=== PATIENT | female | born 1935 | race Two or more races ===

== ENCOUNTER 2019-11-13 11:36 | Emergency (ER) | payer OTHER ==
[~2019-11-13] VITALS: Ht 157.5 cm; Wt 59.0 kg
[~2019-11-13 11:36] MED LIST: ALDACTONE25 MG; ATIVAN1 MG; METOPROLOL TAR100 MG; RISPERIDONE; TRAZODONE HCL50 MG
[2019-11-13] MEDS ORDERED: ARICEPT5 MG PO (11:58)
[2019-11-13] MEDS ORDERED: TOPROL XL100 MG PO (11:58)
[2019-11-13] MEDS ORDERED: LIPIODOL10 ML PO (11:59)
== END 2019-11-13 13:40 | disposition home or self-care (01) ==
LOC: ER 11:36
DX: B33.8 Other specified viral diseases (principal); B96.0 Mycoplasma pneumoniae [M. pneumoniae] as the cause of diseases classified elsewhere

== ENCOUNTER 2022-09-04 15:38 | Emergency (ER) | payer OTHER ==
[~2022-09-04] VITALS: Ht 142.2 cm; Wt 56.2 kg
[~2022-09-04 15:38] MED LIST changes: +ARICEPT5 MG PO; +LIPIODOL10 ML PO; +TOPROL XL100 MG PO
== END 2022-09-04 18:46 | disposition home or self-care (01) ==
LOC: ER 15:38
DX: U07.1 COVID-19 (principal)

== ENCOUNTER 2023-08-17 15:11 | Emergency (ER) | payer OTHER ==
[~2023-08-17] VITALS: Ht 154.9 cm; Wt 59.0 kg
[2023-08-17 17:00] LABS: HEMOGLOBIN 12.9 g/dL (12.0-15.00); MEAN CELL VOLUME 91.9 fL (80.00-100.00); MEAN CORPUSCULAR HEMOGLOBIN 30.5 pg (27.00-32.0); MEAN CORPUSCULAR HGB CONC 33.2 g/dl (32.0-36.0); PLATELET COUNT 167 K/uL (150-450); RED BLOOD COUNT 4.24 M/uL (4.00-6.00); RED CELL DISTRIBUTION WIDTH 15.2 % (11.5-14.5)
== END 2023-08-17 18:14 | disposition home or self-care (01) ==
LOC: ER 15:11
PROVIDERS: General Practice
DX: R05.9 Cough, unspecified (principal); Z88.0 Allergy status to penicillin; Z20.822 Contact with and (suspected) exposure to COVID-19